=== PATIENT | female | born 1970 | race Caucasian/White ===

== ENCOUNTER → 2017-03-28 | Outpatient (CLI) | payer OTHER ==
--- NOTE | 2017-03-29 11:36 | MM ---
Reason for exam: screening (asymptomatic). Last mammogram was performed 1 year and 6 months ago. History: Family history of breast cancer in maternal grandmother at age 83. Benign core biopsy of the right breast. Took hormonal contraceptives for 6 years beginning at age 21. Physical Findings: A clinical breast exam by your physician is recommended on an annual basis and results should be correlated with mammographic findings. MG Screening Mammo w CAD Bilateral CC and MLO view(s) were taken. Prior study comparison: October 07, 2015, bilateral MG screening mammo w CAD. May 30, 2007, bilateral diagnostic digital mammog. The breast tissue is heterogeneously dense. This may lower the sensitivity of mammography. Finding: There are typically benign diffuse/scattered calcifications in both breasts. ASSESSMENT: Benign, BI-RAD 2 RECOMMENDATION: Routine screening mammogram of both breasts in 1 year.
== END | disposition home or self-care (01) ==
LOC: RADMAMWWP 10:04
PROVIDERS: ATTEND Family Medicine
DX: Z12.31 Encounter for screening mammogram for malignant neoplasm of breast (principal)
CPT/HCPCS: 77067

== ENCOUNTER → 2019-07-03 | Outpatient (CLI) | payer OTHER ==
--- NOTE | 2019-07-03 12:35 | XR ---
EXAMINATION TYPE: XR knee complete bilateral DATE OF EXAM: 07/03/2019 CLINICAL HISTORY: Chronic bilateral knee pain with no known injury. TECHNIQUE: Three views of the bilateral knees were obtained. COMPARISON: None. FINDINGS: There is no acute fracture/dislocation evident in either knee. Mild medial compartment wes int space narrowing is seen on the left with small marginal osteophytes of the medial compartment and lateral compartment. On the right there are moderate tricompartmental osteophytes and more pronounce d medial compartment joint space narrowing. The tri-compartment joint spaces appear aligned bilateral ly. Small right suprapatellar joint effusion. IMPRESSION: 1. Moderate right tricompartmental arthropathy and mild left bicompartmental arthropathy. 2. Small right suprapatellar joint effusion. 3. No acute fracture or dislocation in either knee.
== END | disposition home or self-care (01) ==
LOC: RADXRMAIN 11:01
PROVIDERS: ATTEND Nurse Practitioner Family
DX: M12.862 Other specific arthropathies, not elsewhere classified, left knee (principal); M12.861 Other specific arthropathies, not elsewhere classified, right knee; M25.461 Effusion, right knee

== ENCOUNTER → 2019-09-19 | Outpatient (CLI) | payer MEDICAID ==
[2019-09-19 11:43] LABS: Potassium 4.1 mmol/L (3.5-5.1)
[2019-09-19 11:53] LABS: Prothrombin Time 10.2 sec (9.0-12.0)
[2019-09-19 12:00] LABS: Basophils % (A) 0 %; Eosinophils % (A) 0 %; HCT 40.8 % (34.0-46.0); Lymphocytes # (A) 1.5 k/uL (1.0-4.8); Lymphocytes % (A) 22 %; MCH 27.3 pg (25.0-35.0); MCHC 31.7 g/dL (31.0-37.0); Mean Platelet Volume 11.3; Monocytes # (A) 0.4 k/uL (0-1.0); Monocytes % (A) 6 %; Neutrophils % (A) 70 %; Platelet Count 162 k/uL (150-450); RBC 4.75 m/uL (3.80-5.40); RDW 13.7 % (11.5-15.5); WBC 7.1 k/uL (3.8-10.6)
[2019-09-19 13:16] LABS: Anisocytosis (M) Present; Large Platelets Present
== END | disposition home or self-care (01) ==
LOC: LABPAT 10:39
PROVIDERS: ATTEND Family Medicine
DX: Z01.818 Encounter for other preprocedural examination (principal); M17.11 Unilateral primary osteoarthritis, right knee; Z01.812 Encounter for preprocedural laboratory examination
CPT/HCPCS: 36415; 80051; 85025; 85610; 87070; 93005

== ENCOUNTER 2019-10-01 05:53 | Observation (INO) | payer MEDICAID, OTHER ==
[2019-09-24 15:32] VITALS: BMI 36.9
--- NOTE | 2019-09-29 21:59 | HP ---
HISTORY AND PHYSICAL DATE OF SURGERY: 10/01/2019 Bravo Dooley is a 49-year-old patient seen with symptomatic right knee osteoarthritis. We discussed options for treatment. She elected to proceed with right total knee arthroplasty. Consent regarding the procedure was obtained. Dr. Cummings was her primary care physician. PAST MEDICAL HISTORY: Osteoarthritis. PAST SURGICAL HISTORY: Noncontributory. DAILY MEDICATIONS: Ibuprofen. ALLERGIES: CODEINE. SOCIAL HISTORY: She denies tobacco use. PHYSICAL: Evaluation of the right knee: Range of motion 0-115. There is a mild effusion present. Tenderness along medial joint line. Positive medial Tana's. Crepitus medial patellofemoral compartments. Pain with patellofemoral compression. Ligaments are stable. Hip rotation is without pain. Distal neurovascular exam is intact. Radiographs of the right knee reveal severe osteoarthritic changes. IMPRESSION: Right knee osteoarthritis. PLAN: Right total knee arthroplasty. MMODL / IJN: [id number] /
[~2019-10-01 05:53] MED LIST: ACETAMINOPHEN TAB 500 MG TAB PO ONE; MELOXICAM 7.5 MG TAB PO ONE; TRANEXAMIC ACID 1,000 MG in SODIUM CHLORIDE 0.9% 100 ML IVPB ONE
[2019-10-01] MEDS ORDERED: ROPIVACAINE 246.25 MG, EPINEPHrine 0.5 MG, KETOROLAC 30 MG, cloNIDine HCL/PF 80 MCG, WA... MISCELLANE ONE ×5 (06:00)
[2019-10-01] MEDS ORDERED: fentaNYL (PF) 50 MCG/ML 2 ML AMP IV PRN (06:03)
[2019-10-01] MEDS ORDERED: ONDANSETRON 4 MG/2 ML VIAL IVP ONE ×2 (06:03→09:55)
[2019-10-01] MEDS ORDERED: LIDOCAINE 1% (10MG/ML) FOR IV START INTRADERMA PRN (06:03)
[2019-10-01] MEDS: LACTATED RINGERS 1,000 ML IV SCH (06:34)
[2019-10-01] MEDS ORDERED: ACETAMINOPHEN TAB 500 MG TAB ONE (06:36)
[2019-10-01] MEDS ORDERED: DEXAMETHASONE SOD PHOSPHATE 10 MG/ML 1 ML VIAL IV ONE (06:42)
[2019-10-01] MEDS ORDERED: SCOPOLAMINE 1.5MG/72HR PATCH TRANSDERM ONE (06:42)
[2019-10-01] MEDS ORDERED: LIDOCAINE 2% (PF) 20 MG/ML 5 ML VIAL ONE (07:06)
[2019-10-01] MEDS ORDERED: MIDAZOLAM 2 MG/2 ML VIAL IVP ONE (07:10)
[2019-10-01] MEDS ORDERED: fentaNYL (PF) 50 MCG/ML 2 ML AMP IVP ONE ×3 (07:11→13:11)
[2019-10-01] MEDS ORDERED: INSULIN NPH 300 UNIT/3 ML VIAL SQ ONE (07:23)
[2019-10-01] MEDS ORDERED: LIDOCAINE 1% INJ 10MG/ML (20 ML MDV) ONE (07:23)
[2019-10-01] MEDS ORDERED: SUCCINYLCHOLINE CHLORIDE 100 MG/5 ML SYR IV ONE (07:23)
[2019-10-01] MEDS ORDERED: PROPOFOL 10 MG/ML 20 ML VIAL IV ONE (07:23)
[2019-10-01] MEDS ORDERED: HYDROmorphone (PF) 1 MG/ML ONE (07:23)
[2019-10-01] MEDS ORDERED: fentaNYL (PF) 50 MCG/ML 2 ML AMP ONE (07:23)
[2019-10-01] MEDS ORDERED: SODIUM CHLORIDE 0.9% 100 ML BAG ONE (07:23)
[2019-10-01] MEDS ORDERED: ceFAZolin 3,000 MG in SODIUM CHLORIDE 0.9% IRRIGATIO 3,000 ML IRRIGATION ONE (07:59)
[2019-10-01] MEDS ORDERED: LACTATED RINGERS 1,000 ML IV ONE ×3 (08:30→10:46)
[2019-10-01] MEDS ORDERED: ROPIVACAINE 0.2%-NS ON-Q PUMP 1,090 MG, EMPTY PAIN BALL 1 EACH MISCELLANE PRN ×2 (08:44→10:37)
[2019-10-01] MEDS ORDERED: NALOXONE 0.4 MG/ML 1 ML VIAL IV PRN (09:15)
[2019-10-01] MEDS ORDERED: HYDROmorphone 0.5 MG/0.5 ML SYRINGE IVP PRN (09:15)
[2019-10-01] MEDS ORDERED: HYDROmorphone 1 MG/ML 1 ML SYRINGE IVP PRN (09:15)
[2019-10-01] MEDS ORDERED: HYDROcodone/APAP 5-325MG 1 EACH TAB PO PRN ×2 (09:15)
[2019-10-01] MEDS ORDERED: ONDANSETRON 4 MG/2 ML VIAL IVP PRN (09:15)
--- NOTE | 2019-10-01 09:15 | P.OP ---
Date of Procedure: 10/01/19 Preoperative Diagnosis: Right knee osteoarthritis Postoperative Diagnosis: Right knee osteoarthritis Procedure(s) Performed: Right total knee arthroplasty Implants: 1. Depuy attune size 6 narrow cruciate retaining cemented femur 2. Depuy attune size 6 fixed bearing cemented tibial baseplate 3. Depuy attune size 6 fixed bearing cruciate retaining 10 mm polyethylene tibial insert 4. Depuy attune 38 mm all polyethylene cemented patella Anesthesia: GETA, regional (Adductor canal catheter), local Surgeon: Ricky Lomeli Production Superintendent #1: Catracho Kennedy Estimated Blood Loss (ml): 50 Pathology: other (Bone) Condition: stable Disposition: PACU Indications for Procedure: 49-year-old patient seen with symptomatic right knee osteoarthritis. After treatment options were discussed with her, she elected to proceed with total knee arthroplasty. Operative Findings: See description of procedure Description of Procedure: Patient was taken to the operative suite after having an adductor canal catheter placed by the department of anesthesia. Patient underwent a general anesthetic by the department of anesthesia. Patient was given preoperative IV intake antibiotics and TXA. A well-padded tourniquet was placed about the right lower extremity. The lower extremity was then prepped and draped in the normal sterile orthopedic fashion. The extremity was elevated, a tourniquet was insufflated to 300. A standard anterior incision was made sharply through skin. Dissection was taken down through the subcutaneous soft tissues down to the extensor mechanism. A medial arthrotomy was performed, patella was everted and knee was flexed. There was advanced osteoarthritis noted. I introduced my distal intramedullary femoral drill. I then introduced the distal femoral cutting jig. Chano TOLEDO secured the cutting jig with 2 pins. I held retractors in position while Chano TOLEDO performed the distal femoral resection through the guide area we now removed her distal femoral cutting guide. We now placed our 4-in-1 femoral cutting block and positioned and it was secured with 2 pins by Chano TOLEDO while I held the block in position. The distal femoral finishing was now completed. A proximal tibial cutting guide was positioned. I held the guide in the appropriate position with both hands well Chano TOLEDO inserted stabilizing pins into the guide. Proximal tibial cut was made. We now placed a trial femoral component into position, along with an appropriate size tibial tray and insert. We now took the knee through range of motion and had full extension good flexion and good overall soft tissue balance noted. The patella was everted and stabilized with 2 towel clips held by Chano TOLEDO while I performed a flush with patellar quad tendon utilizing a fresh sawblade. We templated the patella, appropriate drill holes were made. An appropriate trial patella was positioned, knee was taken through full range of motion with the patella tracking very nicely. The trial patella was removed. Drill holes were made through the femoral component. All trial components were removed after marking off the appropriate rotation of the tibia. Retractors were now positioned along the proximal tibia. An appropriate keel punch was made with the appropriate size tibial guide by myself on Chano TOLEDO assisted by holding retractors. At this point appropriate size implants were chosen and opened. The joint was irrigated copiously with pulse lavage mechanical irrigation. The posterior capsule was infiltrated with local analgesic. The wo und was irrigated with pulse lavage mechanical irrigation. We mixed antibiotic methylmethacrylate. We placed the knee into flexion. We placed multiple retractors assisted by Chano TOLEDO to expose the proximal tibia. Once the methyl methacrylate was ready, the tibial component was cemented into place removing any excess methylmethacrylate form by both myself and Chano TOLEDO. The femoral component was cemented into place removing the removing any excess methylmethacrylate performed by both myself and Chano TOLEDO. We then inserted the appropriate size polyethylene tibial insert. We made sure that it was locked into position. We took the knee into full extension, and then back in a flexion making sure we had removed any excess methylmethacrylate. The patellar component was then cemented down and secured with clamp. Excess methylmethacrylate removed. We kept the knee in full extension, patellar clamp in position until methylmethacrylate had hardened. Once it had hardened the patellar clamp was removed. The knee was taken through full range of motion. The patella tracked nicely. There was good soft tissue balancing. The tourniquet was now released. Additional hemostasis was achieved via electrocautery. A second gram of TXA was given. The wound again was irrigated with pulse lavage mechanical irrigation. The superficial soft tissues were infiltrated local analgesic. The extensor mechanism was repaired with Vicryl. We checked the repair with range of motion and it was stable. The subcutaneous soft tissues were repaired with Vicryl in layers. The skin was approximated with pernio/Dermabond. Sterile dressings were applied followed by loose web roll and Andrew bandage. The patient was transferred to a bed, and taken to recovery in stable and satisfactory condition. Chano TOLEDO assisted with this complex procedure.
[2019-10-01] MEDS ORDERED: diphenhydrAMINE 50 MG/ML 1 ML VIAL IVP ONE (10:01)
[2019-10-01] MEDS: HYDROmorphone 0.5 MG/0.5 ML SYRINGE IVP PRN ×3 (10:25→22:23)
--- NOTE | 2019-10-01 10:39 | P.ANPRN ---
Procedure Note - Anesthesia - Nerve Block Performed Right Adductor Canal Infusion Time Out Performed: Yes Date of Procedure: 10/01/19 Procedure Start Time: :08 Procedure Stop Time: 07:15 Location of Patient: PreOp Indication: Acute Post-Operative Pain, Dx/Pain Location, Requested by Surgeon Sedation Type: Sedate with meaningful contact maintained Preparation: Sterile Prep Position: Supine Catheter: Indwelling Needle Types: Pajunk Needle Gauge: 21 Ultrasound used to visualize needle placement: Yes Ultrasound used to observe medication spread: Yes Injectate: 0.5% Ropivacaine (see comment for volume) (20ml) Blood Aspirated: No Pain Paresthesia on Injection Noted: No Resistance on Injection: Normal Image Stored and Saved: Yes Events: Uneventful and Well Tolerated
--- NOTE | 2019-10-01 10:40 | P.ANPRN ---
Procedure Note - Anesthesia - Nerve Block Performed Right Other (see comment) Single Time Out Performed: Yes (Ipaks block with USG) Date of Procedure: 10/01/19 Procedure Start Time: 07:15 Procedure Stop Time: 07:17 Location of Patient: PreOp Indication: Acute Post-Operative Pain, Dx/Pain Location, Requested by Surgeon Sedation Type: Sedate with meaningful contact maintained Preparation: Sterile Prep Position: Left Lateral Catheter: None Needle Types: Pajunk Needle Gauge: 21 Ultrasound used to visualize needle placement: Yes Ultrasound used to observe medication spread: Yes Injectate: Other (see comment) (10ml 0.5% Ropivacaine + 10ml 2% Lidocaine with Epi 1:200,000) Blood Aspirated: No Pain Paresthesia on Injection Noted: No Resistance on Injection: Normal Image Stored and Saved: Yes Events: Uneventful and Well Tolerated
--- NOTE | 2019-10-01 11:12 | XR ---
EXAMINATION TYPE: XR knee limited RT DATE OF EXAM: 10/01/2019 COMPARISON: 07/03/2019 HISTORY: Post knee replacement TECHNIQUE: 2 view right knee FINDINGS: Tibial and femoral components of in place. No acute fractures are evident. Postsurgical aleah nges are within the soft tissues. IMPRESSION: 1. No acute fracture post knee replacement.
[2019-10-01] MEDS ORDERED: PROMETHAZINE INJ 25 MG/ML 1 ML VIAL IVPB ONE ×2 (15:00)
--- NOTE | 2019-10-01 22:38 | P.CONS ---
History of Present Illness - Reason for Consult Consult date: 10/01/19 Medical management Requesting physician: Ricky Lomeli - Chief Complaint Right knee surgery - History of Present Illness Consultation: This is a pleasant 49-year-old patient of Dr. Cummings. Patient underwent right total knee arthroplasty. Postprocedure pain is controlled. Patient's symptoms have been coming on for a while. She's tried conservative management including pain medications. Symptoms's been getting worse. Worse with activity better with rest. Pain is pretty much localized to the right knee. Today postprocedure no nausea or vomiting. No chest pain or shortness of breath. Has arthritis in other joints. Review of systems: GEN.: None EYES: None HEENT: None NECK: None RESPIRATORY: None CARDIOVASCULAR: None GASTROINTESTINAL: None GENITOURINARY: None MUSCULOSKELETAL: Joint pains LYMPHATICS: None HEMATOLOGICAL: None PSYCHIATRY: None NEUROLOGICAL: Occasionally trouble sleeping Past medical history to include: Osteoarthritis, insomnia Social history: Lives with 4 children, occasionally does marijuana, drinks 2-4 glasses of wine a week. Works at [employer]. Physical examination: VITAL SIGNS: 98.2, 68, 18, 151/92, 100% on room air GENERAL: [BMI 37.1, laying in bed, awake. EYES: Pupils equal. Conjunctiva normal. HEENT: External appearance of nose and ears normal, oral cavity grossly normal. NECK: JVD not raised; masses not palpable. HEART: First and second heart sounds are normal; no edema. LUNGS: Respiratory rate normal; clear to auscultation. ABDOMEN: Soft, nontender, liver spleen not palpable, no masses palpable. PSYCH: Alert and oriented x3; mood and affect normal. NEUROLOGICAL: Cranial nerves grossly intact; no facial asymmetry, power and sensation grossly intact. MUSCULAR skeletal: Evidence of OA LYMPHATICS: No lymph nodes palpable in the axilla and neck INVESTIGATIONS, reviewed in the clinical context: From September 18: White count 7.1 hemoglobin 13 platelets 162 potassium 4.1 EKG tracing personally reviewed by me-normal sinus rhythm Assessment: -Right total knee arthroplasty -Primary osteoarthritis of the knees -Obesity BMI 37.1, -Intermittent insomnia Plan: Patient getting IV fluids. Pain control in place. Lovenox for DVT prophylaxis. Care was discussed with the patient. Questions answered. Use melatonin for insomnia. Thank you Dr. Rich Past Medical History Past Medical History: Osteoarthritis (OA) Additional Past Medical History / Comment(s): Rt knee pain. History of Any Multi-Drug Resistant Organisms: None Reported Past Surgical History: Orthopedic Surgery Additional Past Surgical History / Comment(s): Rt knee scope Past Anesthesia/Blood Transfusion Reactions: Motion Sickness, Postoperative Nausea & Vomiting (PONV) Past Psychological History: Depression Additional Psychological History / Comment(s): Hx post- depression Smoking Status: Never smoker Past Alcohol Use History: Occasional Past Drug Use History: Marijuana Additional Drug Use History / Comment(s): occ use, monthly estimated - Past Family History Mother Additional Family Medical History / Comment(s): pre-cancerous colon polyp Medications and Allergies Home Medications Medication Instructions Recorded Confirmed Type Biocleanse 1 cap PO DAILY 09/24/19 History Ibuprofen [Motrin Ib] 800 mg PO Q8H PRN 09/24/19 10/01/19 History L.acidoph,Paracasei, B.lactis 1 each PO DAILY 09/24/19 10/01/19 History [Probiotic] Allergies Allergy/AdvReac Type Severity Reaction Status Date / Time codeine Allergy Nausea & Verified 09/24/19 15:02 Vomiting Physical Exam Vitals: Vital Signs Temp Pulse Pulse Resp BP BP Pulse Ox 10/01/19 18:42 98.7 F 67 102/66 93 L 10/01/19 16:00 18 10/01/19 15:57 98.2 F 68 18 151/92 100 10/01/19 14:39 61 20 139/76 95 10/01/19 13:57 72 20 122/75 100 10/01/19 13:30 57 L 20 124/77 99 10/01/19 13:15 61 18 122/72 99 10/01/19 13:00 59 L 18 120/70 99 10/01/19 12:44 65 17 125/76 95 10/01/19 12:13 61 17 120/77 95 10/01/19 11:40 73 20 144/83 93 L 10/01/19 11:25 70 20 140/89 93 L 10/01/19 11:09 66 18 144/83 94 L 10/01/19 10:45 64 16 150/77 94 L 10/01/19 10:01 86 16 144/72 96 10/01/19 09:46 83 16 142/67 94 L 10/01/19 09:31 89 16 143/76 98 10/01/19 06:23 98.5 F 81 16 136/87 98 Intake and Output 10/01/19 10/01/19 10/01/19 06:59 14:59 22:59 Intake Total 400 2301 Output Total 1350 Balance 400 951 Intake: IV 400 2301 Output: Urine 1300 Estimated Blood Loss 50 Other: # Voids 1 Weight 101 kg 101 kg
[2019-10-02 02:22] VITALS: TEMP 98.4
[2019-10-02] MEDS: HYDROmorphone 0.5 MG/0.5 ML SYRINGE IVP PRN (02:30)
[2019-10-02] MEDS: LACTATED RINGERS 1,000 ML IV SCH (05:46)
--- NOTE | 2019-10-02 06:11 | P.PN ---
Progress Note - Text Progress Note Date: 10/02/19 41-year-old female status post right total knee arthroplasty postop day #1. Patient had continuous adductor canal catheter. Patient doing well. Patient had complete analgesia all of yesterday. She was having severe nausea and lightheadedness which is common after anesthesia. VAS ranges from a 2-4 out of 10 in severity, catheter site looks clean dry and intact. She's been ambulating well, feeling much better today. Pain mostly is in the posterior popliteal fossa with no pain anterior immediately. Overall doing well likely discharged home today.
[2019-10-02 06:54] VITALS: BP 105/66; PULSE 62; RESP 17
[2019-10-02] MEDS ORDERED: ENOXAPARIN 40 MG/0.4 ML SYRINGE SQ SCH (09:00)
[2019-10-02] MEDS ORDERED: ONDANSETRON 4 MG/2 ML VIAL IVP PRN (09:35)
[2019-10-02] MEDS ORDERED: NALOXONE 0.4 MG/ML 1 ML VIAL IV PRN (09:35)
[2019-10-02] MEDS ORDERED: HYDROcodone/APAP 7.5-325MG 1 EACH TAB PO ONE (10:09)
--- NOTE | 2019-10-02 11:28 | P.PN ---
Subjective Progress Note Date: 10/02/19 Principal diagnosis: Status post right total knee arthroplasty patient is evaluated today at bedside, she is resting comfortably. She has had some increase in pain, she's nervous with taking oral pain medication due to previous adverse effects. She was scheduled for an outpatient surgery yesterday, she did have severe nausea after waking up. The nausea has much improved, she denies any chest pain or shortness of breath. Objective - Vital Signs Vital signs: Vital Signs Temp 98.4 F 10/02/19 06:53 Pulse 62 10/02/19 06:53 Resp 17 10/02/19 06:53 BP 105/66 10/02/19 06:53 Pulse Ox 95 10/02/19 06:53 Intake & Output 10/01/19 10/02/19 10/02/19 18:59 06:59 18:59 Intake Total 2301 260 Output Total 1350 Balance 951 260 Weight 101 kg Intake: IV 2301 Oral 260 Output: Urine 1300 Estimated Blood Loss 50 Other: # Voids 1 - Exam Right lower extremity: Incision is clean, dry, and intact. The foam dressing is in good condition. There is minimal soft tissue swelling and ecchymosis surrounding the medial and lateral aspects of the incision. Calf is soft, no tenderness with palpation. Plantar flexion, dorsiflexion, EHL, FHL are intact. Sensory exam to light touch throughout the extremity is intact, dorsal pedis pulses 2+. Assessment and Plan Assessment: Status post right total knee arthroplasty Plan: Pain control, will try [place] at bedside today. Plan for discharge on [place] and tramadol, we'll also send patient home on Zofran GI and DVT prophylaxis, aspirin 81 mg twice a day Wound care instructions were discussed/icing and elevating techniques discussed Home nursing and therapy after discharge Medical recommendations Plan for discharge home today Time with Patient: Less than 30
--- NOTE | 2019-10-02 11:32 | P.DS ---
Providers Date of admission: 10/02/19 03:37 Expected date of discharge: 10/02/19 Attending physician: Ricky Lomeli Primary care physician: Derek Cummings [facility] Course: Date of admission: 10/01/2019 Date of discharge: 10/02/2019 Admission diagnosis: Status post right total knee arthroplasty Discharge diagnosis: Same Attending physician: Dr. Lomeli Surgical procedures: Right total knee arthroplasty Brief history: Patient is a 49-year-old female with a history of progressive primary right knee osteoarthritis. At this point patient has failed conservative treatment measures and has opted to proceed with a elective right total knee arthroplasty. Hospital course: Details of patient's surgery can be found in operative report. Patient tolerated the procedure well and was subsequently transported to orthopedic floor. Patient's orthopeidc and medical care was provided daily. Patient had daily laboratory tests performed for evaluation of overall blood counts. Patient had daily physical therapy to include strengthening range of motion as well as education with walker ambulation. Patient was treated with Lovenox for their postoperative DVT prophylaxis during their inpatient stay. Patient was noted to have a relatively uneventful postoperative course. Patient reported satisfactory pain control with oral pain medications by postoperative day 0. Patient showed satisfactory progress with physical therapy. Patient moved steadily through the program and had no difficulty meeting the goals by postoperative day 1. Given patient's otherwise satisfactory course and having met physical therapy goals, plan is to discharge patient home on postoperative day 1. Discharge condition/disposition: Patient will be discharged home in stable condition. Discharge medications: Instructions are given on resumption of patient's normal daily medications per primary care recommendation, in addition patient will be prescribed Norm[place] 7.5 mg/325 mg, tramadol 50 mg, Colace 100 mg, Zofran 8 mg, aspirin 81 mg. Discharge instructions: 1. Wound care and infection precautions, keep incision dry and covered while showering, no lotions, creams, moisturizers. No soaking, tubs, pools, hottubs. Do not scrub over the incision. 2. Weight-bear as tolerated with walker / cane until follow-up. 3. Ice and elevate when necessary. Do not exceed 20 minutes per hour with ice pack. 4. Utilize compression sleeve until seen at first follow up appointment. 5. Visiting nursing care. 6. Home physical therapy including home CPM. 7. Pain meds and anticoagulants per prescription. 8. Pain medication has potential to cause constipation. Increase oral fluid and fiber intake. Contact primary care provider if you have not had a bowel movement within 48 hours after discharge 9. No anti-inflammatory medication until discussed at first post operative visit, this including Motrin, Aleve, Mobic, Diclofenac. 10. Follow up in office at 2 weeks postop with Chano Kennedy PA-C 11. Follow up with your primary care doctor 7-10 days after discharge. 12. Contact [facility] with any questions, . Procedures: Right total knee arthroplasty Patient Condition at Discharge: Good Plan - Discharge Summary Discharge Rx Participant: No New Discharge Prescriptions: New RX: Aspirin [Adult Low Dose Aspirin EC] 81 mg PO BID #60 tablet. Docusate [Colace] 100 mg PO DAILY #30 capsule HYDROcodone/APAP 7.5-325MG [Normandy 7.5] 1 each PO Q6HR PRN #21 tab PRN Reason: Pain RX: traMADol HCl [Ultram] 50 mg PO Q6H PRN #28 tab PRN Reason: Pain Ondansetron HCl [Zofran] 8 mg PO Q12H PRN #14 tab PRN Reason: Nausea And Vomiting Continue RX: L.acidoph,Paracasei, B.lactis [Probiotic] 1 each PO DAILY Biocleanse 1 cap PO DAILY No Action Ibuprofen [Motrin Ib] 800 mg PO Q8H PRN PRN Reason: Pain Discharge Medication List Biocleanse 1 cap PO DAILY 09/24/19 [History] Ibuprofen [Motrin Ib] 800 mg PO Q8H PRN 09/24/19 [History] RX: L.acidoph,Paracasei, B.lactis [Probiotic] 1 each PO DAILY 09/24/19 [History] Docusate [Colace] 100 mg PO DAILY #30 capsule 10/02/19 [Rx] HYDROcodone/APAP 7.5-325MG [Normandy 7.5] 1 each PO Q6HR PRN #21 tab 10/02/19 [Rx] Ondansetron HCl [Zofran] 8 mg PO Q12H PRN #14 tab 10/02/19 [Rx] RX: Aspirin [Adult Low Dose Aspirin EC] 81 mg PO BID #60 tablet. 10/02/19 [Rx] RX: traMADol HCl [Ultram] 50 mg PO Q6H PRN #28 tab 10/02/19 [Rx] Follow up Appointment(s)/Referral(s): [facility], [NON-STAFF] - Catracho Kennedy PAC [PHYSICIAN STEWARD/STEWARDESS THIRD] - 10/17/19 2:10 pm Patient Instructions/Handouts: *Surgery [facility] - On-Q Pain Pump Discharge Instructions, *Surgery [facility] - (Anesthesia) Discharge Instructions Outpatient Surgery, How to Use an Incentive Spirometer (DC), Knee Replacement (DC) Activity/Diet/Wound Care/Special Instructions: *Please call [facility] once home to arrange delivery of the Continuous Passive Motion (CPM) machine: [phone]. Follow up with Primary Care doctor in 7-10 days Orthopedic Discharge Instructions: 1. Wound care and infection precautions, keep incision dry and covered while showering, no lotions, creams, moisturizers. No soaking, pools, hot tubs. Do not scrub over incision. 2. Weight-bear as tolerated with walker / cane until follow-up. 3. Ice and elevate when necessary. Do not exceed 20 minutes per hour with ice pack. 4. Utilize compression sleeve until seen at first follow up appointment. 5. Pain meds and anticoagulants per prescription. 6. Pain medication has potential to cause constipation. Increase oral fluid and fiber intake. Contact primary care provider if you have not had a bowel movement within 48 hours after discharge. 7. No anti-inflammatory medication until discussed at first post operative visit, this including Motrin, Aleve, Mobic, Diclofenac. 8. Follow up in office at 2 weeks postop with Chano Kennedy PA-C 9. Follow up with your primary care doctor 7-10 days after discharge. 10. Contact [facility] with any questions, . Discharge Disposition: HOME WITH HOME HEALTH SERVICES
--- NOTE | 2019-10-02 19:32 | P.PN ---
Progress Note - Text Progress Note Date: 10/02/19 Consultation: This is a pleasant 49-year-old patient of Dr. Cummings. Patient underwent right total knee arthroplasty. Today-some pain at the operative knee. Feeling better. Has been out of bed. No chest pain or shortness breath. Did work with therapy. Review of systems: Was done for constitutional, cardiovascular, GI, pulmonary. relevant finding as above Current medications reviewed in today's electronic records. Physical examination: VITAL SIGNS: 98.4, 62, 17, 105/66, 95% room air GENERAL: Sitting up, comfortable EYES: Pupils equal. Conjunctiva normal. HEENT: External appearance of nose and ears normal, oral cavity grossly normal. NECK: JVD not raised; masses not palpable. HEART: First and second heart sounds are normal; no edema. LUNGS: Respiratory rate normal; clear to auscultation. ABDOMEN: Soft, nontender, liver spleen not palpable, no masses palpable. PSYCH: Alert and oriented x3; mood and affect normal. MUSCULAR skeletal: Evidence of OA INVESTIGATIONS, reviewed in the clinical context: From September 18: White count 7.1 hemoglobin 13 platelets 162 potassium 4.1 EKG tracing personally reviewed by me-normal sinus rhythm Assessment: -Right total knee arthroplasty -Primary osteoarthritis of the knees -Obesity BMI 37.1, -Intermittent insomnia Plan: Patient doing well. Continue current medication to plan. Follow-up with PCP upon discharge. Thank you Dr. Rich
== END 2019-10-02 13:12 | disposition home health service (06) ==
LOC: OR 05:53 → 4SSUR 09:25 → OR 10-02 04:04
PROVIDERS: ADMIT Orthopaedic Surgery; ATTEND Orthopaedic Surgery
DX: M17.0 Bilateral primary osteoarthritis of knee (principal); R11.0 Nausea; R42 Dizziness and giddiness; G47.00 Insomnia, unspecified; M19.90 Unspecified osteoarthritis, unspecified site; E66.9 Obesity, unspecified; Z68.37 Body mass index [BMI] 37.0-37.9, adult; F32.9 Major depressive disorder, single episode, unspecified; Z88.5 Allergy status to narcotic agent; F17.210 Nicotine dependence, cigarettes, uncomplicated; Z79.1 Long term (current) use of non-steroidal anti-inflammatories (NSAID); Z80.0 Family history of malignant neoplasm of digestive organs
CPT/HCPCS: 97116; 97110; 97161; 81025; 64448; 76942; 88300; 73560; 27447; G0378; C1776; C1713; J2250; J0171; J1200; J1100; J2550; J0690 ×2; J2405; J2001; J1650; J3010; J1885; J1170 ×3; J2795 ×2; J0330; J2704; J0735

== ENCOUNTER 2020-01-07 10:41 | Day surgery (SDC) | payer MEDICAID, OTHER ==
[2020-01-01 09:17] VITALS: BMI 34.6
--- NOTE | 2020-01-06 10:52 | HP ---
HISTORY AND PHYSICAL REASON FOR ADMISSION: Surgery scheduled for 01/07/2020 HISTORY OF PRESENT ILLNESS: Amada Dooley is a 49-year-old patient seen with right knee persistent adhesions/stiffness with history of previous total knee arthroplasty. We discussed manipulation under anesthesia, right knee with steroid injection. She was agreeable and consent was obtained. PAST MEDICAL HISTORY: Noncontributory. SURGICAL HISTORY: Right total knee arthroplasty. DAILY MEDICATIONS: Ibuprofen. ALLERGIES: CODEINE. SOCIAL HISTORY: She denies tobacco use. PHYSICAL EXAMINATION: Evaluation of the right knee: She has a previous well-healed anterior incision. Range of motion is -2 to 90. Ligaments are stable. Distal neurovascular exam is intact. RADIOGRAPHS: Radiographs of the right knee reveal a stable appearing total knee arthroplasty. IMPRESSION: 1. Right knee adhesions. 2. History of right total knee arthroplasty. PLAN: Manipulation under anesthesia, right knee with steroid injection. Surgery is scheduled for 01/07/2020. MMODL / IJN: [id number] /
[~2020-01-07 10:41] MED LIST changes: -ACETAMINOPHEN TAB 500 MG TAB PO ONE; +DEXAMETHASONE SOD PHOSPHATE 4 MG/ML 1 ML VIAL IV ONE; +HYDROmorphone 0.5 MG/0.5 ML SYRINGE IVP PRN; +LACTATED RINGERS 1,000 ML IV SCH; -MELOXICAM 7.5 MG TAB PO ONE; +ONDANSETRON 4 MG/2 ML VIAL IVP ONE; +Pre Op ABX Message 1 EACH MISC MISCELLANE ONE; -TRANEXAMIC ACID 1,000 MG in SODIUM CHLORIDE 0.9% 100 ML IVPB ONE
[2020-01-07 11:05] VITALS: TEMP 98.4
[2020-01-07] MEDS ORDERED: fentaNYL (PF) 50 MCG/ML 2 ML AMP IVP ONE (11:31)
[2020-01-07] MEDS ORDERED: MIDAZOLAM 2 MG/2 ML VIAL IVP ONE (11:31)
[2020-01-07] MEDS ORDERED: ROPIVACAINE 5 MG/ML 30 ML VIAL ONE (11:49)
[2020-01-07] MEDS ORDERED: fentaNYL (PF) 50 MCG/ML 2 ML AMP ONE (11:49)
[2020-01-07] MEDS ORDERED: PROPOFOL 10 MG/ML 20 ML VIAL IV ONE (11:49)
[2020-01-07] MEDS ORDERED: KETOROLAC 15 MG/ML 1 ML VIAL ONE (11:49)
[2020-01-07] MEDS ORDERED: MIDAZOLAM 2 MG/2 ML VIAL ONE (11:49)
[2020-01-07] MEDS ORDERED: methylPREDNISolone ACETATE 80 MG/ML 1 ML VIAL INJ ONE (11:55)
--- NOTE | 2020-01-07 12:06 | P.OP ---
Date of Procedure: 01/07/20 Preoperative Diagnosis: Right knee adhesions Postoperative Diagnosis: Right knee adhesions Procedure(s) Performed: Manipulation under anesthesia right knee with steroid injection Anesthesia: MAC, local Surgeon: Ricky Lomeli Estimated Blood Loss (ml): 0 Pathology: none sent Condition: stable Disposition: PACU Indications for Procedure: 49-year-old patient seen with persistent right knee adhesions. After discussion, she elected to proceed with manipulation under anesthesia right knee with steroid injection. Operative Findings: See description of procedure Description of Procedure: Patient was taken to the monitored anesthesia area. The patient received preoperative IV antibiotics. The patient underwent IV sedation by the department of anesthesia. Once sufficient anesthesia was noted a manipulation was performed of the right knee achieving full range of motion with audible tearing of the adhesions. The superior lateral aspect of the knee was prepped and draped in the normal sterile orthopedic fashion. A solution 1 mL Depo- Medrol and 2 mL quarter percent Marcaine were injected intra-articular sterile technique. A sterile Band-Aid was applied. The patient was then awakened having tolerated procedure well.
--- NOTE | 2020-01-07 12:20 | P.ANPRN ---
Procedure Note - Anesthesia - Nerve Block Performed Right Adductor Canal Single Time Out Performed: Yes (1130) Date of Procedure: 01/07/20 Procedure Start Time: : Procedure Stop Time: :36 Location of Patient: PreOp Indication: Acute Post-Operative Pain, Requested by Surgeon Specifically requested for management of pain by DrOren: Ricky Lomeli Sedation Type: Sedate with meaningful contact maintained Preparation: Sterile Prep Position: Supine Catheter: None Needle Types: Pajunk Needle Gauge: 21 Ultrasound used to visualize needle placement: Yes Ultrasound used to observe medication spread: Yes Injectate: 0.5% Ropivacaine (see comment for volume) (30cc) Blood Aspirated: No Pain Paresthesia on Injection Noted: No Resistance on Injection: Normal Image Stored and Saved: Yes Events: Uneventful and Well Tolerated
[2020-01-07 12:54] VITALS: BP 140/81; RESP 20
[2020-01-07 13:09] VITALS: PULSE 73
== END 2020-01-07 13:20 | disposition home or self-care (01) ==
LOC: OR 10:41
PROVIDERS: ATTEND Orthopaedic Surgery
DX: M24.661 Ankylosis, right knee (principal); M19.90 Unspecified osteoarthritis, unspecified site; Z79.1 Long term (current) use of non-steroidal anti-inflammatories (NSAID); Z88.5 Allergy status to narcotic agent; Z96.651 Presence of right artificial knee joint
CPT/HCPCS: 64447; 27570; 81025; 76942; J2250; J1040; J1100; J0690; J2405; J3010; J2795; J1885; J2704

== ENCOUNTER → 2020-10-21 | Outpatient (CLI) | payer OTHER ==
--- NOTE | 2020-10-22 14:51 | MM ---
Reason for exam: screening (asymptomatic). Last mammogram was performed 3 years and 7 months ago. History: Family history of breast cancer in maternal grandmother at age 83. Benign core biopsy of the right breast. Took hormonal contraceptives for 6 years beginning at age 21. Physical Findings: A clinical breast exam by your physician is recommended on an annual basis and results should be correlated with mammographic findings. MG Screening Mammo w CAD Bilateral CC and MLO view(s) were taken. Prior study comparison: March 28, 2017, bilateral MG screening mammo w CAD. October 07, 2015, bilateral MG screening mammo w CAD. The breast tissue is extremely dense which could obscure a lesion on mammography. Developing asymmetry right lower inner quadrant. This finding is changed when compared with previous exams. ASSESSMENT: Incomplete: need additional imaging evaluation, BI-RAD 0 RECOMMENDATION: Special view mammogram of the right breast. If lesion persists on supplemental views, image directed ultrasound is recommended. [facility] will attempt to contact patient to return for supplemental views and ultrasound if indicated.
== END | disposition home or self-care (01) ==
LOC: RADMAMWWP 16:14
PROVIDERS: ATTEND Family Medicine
DX: Z12.31 Encounter for screening mammogram for malignant neoplasm of breast (principal); Z80.3 Family history of malignant neoplasm of breast; Z79.3 Long term (current) use of hormonal contraceptives
CPT/HCPCS: 77067

== ENCOUNTER → 2020-10-29 | Outpatient (CLI) | payer OTHER ==
--- NOTE | 2020-10-30 12:12 | MM ---
Reason for exam: additional evaluation requested from abnormal screening. Last mammogram was performed less than 1 month ago. History: Family history of breast cancer in maternal grandmother at age 83. Benign core biopsy of the right breast. Took hormonal contraceptives for 6 years beginning at age 21. Physical Findings: Nurse Summary: 0.5cm nodule in the right breast at 9 o'clock (nurse ms). MG Work Up Mamm w CAD RT Spot compression CC, spot compression MLO, and LM view(s) were taken of the right breast. Prior study comparison: October 21, 2020, bilateral MG screening mammo w CAD. March 28, 2017, bilateral MG screening mammo w CAD. October 07, 2015, bilateral MG screening mammo w CAD. The breast tissue is heterogeneously dense. This may lower the sensitivity of mammography. 1.9cm asymmetric density inferior right MLO view persists on spot MLO and LM view. 9 o'clock palpable marker near the nipple. These results were verbally communicated with the patient and result sheet given to the patient on 10/29/20. ASSESSMENT: Incomplete: need additional imaging evaluation, BI-RAD 0 RECOMMENDATION: Ultrasound of the right breast. (3-10 o'clock)
--- NOTE | 2020-11-12 14:46 | USB ---
Reason for exam: additional evaluation requested from abnormal screening. History: Family history of breast cancer in maternal grandmother at age 83. Benign core biopsy of the right breast. Took hormonal contraceptives for 6 years beginning at age 21. US Breast Workup Limited RT Right limited breast ultrasound including focal area of concern, retroareolar and axilla demonstrates no cystic or solid lesion seen. 3-10 o'clock scanned. These results were verbally communicated with the patient and result sheet given to the patient on 10/29/20. ASSESSMENT: Suspicious, BI-RAD 4 RECOMMENDATION: Stereotactic core biopsy of the right breast. (try lateral medial approach) Called Dr. Cummings's office with mammographic findings will scheduled an appointment with Dr. Cordova. PRELIMINARY REPORT CALLED AND FAXED TO DR. CORDOVA ON 10/30/20.
== END | disposition home or self-care (01) ==
LOC: RADMAMWWP 13:46
PROVIDERS: ATTEND Family Medicine
DX: N63.15 Unspecified lump in the right breast, overlapping quadrants (principal); Z80.3 Family history of malignant neoplasm of breast
CPT/HCPCS: 77065

== ENCOUNTER 2020-11-19 07:14 | Day surgery (SDC) | payer OTHER ==
[2020-11-14 09:04] VITALS: BMI 38.6
[2020-11-19] MEDS ORDERED: LACTATED RINGERS 1,000 ML IV SCH (07:32)
[2020-11-19] MEDS ORDERED: LIDOCAINE 1% (10MG/ML) FOR IV START INTRADERMA PRN (07:32)
[2020-11-19 07:55] VITALS: TEMP 97
--- NOTE | 2020-11-19 07:58 | P.GSHP ---
History of Present Illness H&P Date: 11/19/20 CHIEF COMPLAINT: Colon screen HISTORY OF PRESENT ILLNESS: The patient is a 50-year-old female who presents for colon screen. Lower endoscopy was offered for further evaluation and management. PAST MEDICAL HISTORY: Please see list. PAST SURGICAL HISTORY: Please see list. MEDICATIONS: Please see list. ALLERGIES: Please see list. SOCIAL HISTORY: No illicit drug use FAMILY HISTORY: No reports of Crohn disease or ulcerative colitis. REVIEW OF ORGAN SYSTEMS: CONSTITUTIONAL: No reports of fevers or chills. PHYSICAL EXAM: VITAL SIGNS: Stable GENERAL: Well-developed pleasant in no acute distress. HEENT: No scleral icterus. Extraocular movements grossly intact. Moist buccal mucosa. NECK: Supple without lymphadenopathy. CHEST: Unlabored respirations. Equal bilateral excursions. CARDIOVASCULAR: Regular rate and rhythm. Distal 2+ pulses. ABDOMEN: Soft, nontender, nondistended. MUSCULOSKELETAL: No clubbing, cyanosis, or edema. ASSESSMENT: 1. Colon screen. PLAN: 1. Recommend proceeding with a lower endoscopy Past Medical History Past Medical History: Osteoarthritis (OA) Additional Past Medical History / Comment(s): Rt knee pain. History of Any Multi-Drug Resistant Organisms: None Reported Past Surgical History: Joint Replacement, Orthopedic Surgery Additional Past Surgical History / Comment(s): Rt knee scope. rt knee replacement Past Anesthesia/Blood Transfusion Reactions: Motion Sickness, Postoperative Nausea & Vomiting (PONV) Smoking Status: Never smoker - Past Family History Mother Additional Family Medical History / Comment(s): pre-cancerous colon polyp Medications and Allergies Home Medications Medication Instructions Recorded Confirmed Type Ascorbic Acid [Vitamin C] 500 mg PO DAILY 11/14/20 11/14/20 History Ascorbic Acid/Collagen Hydr 1 each PO DAILY 11/14/20 11/14/20 History [Collagen Plus Vit C Capsule] Multivitamins, Thera [Multivitamin 1 tab PO DAILY 11/14/20 11/14/20 History (formulary)] Allergies Allergy/AdvReac Type Severity Reaction Status Date / Time codeine Allergy Nausea & Verified 11/14/20 08:59 Vomiting Surgical - Exam Vital Signs Temp Pulse Resp BP Pulse Ox 97 F L 80 20 122/88 99 11/19/20 07:52 11/19/20 07:52 11/19/20 07:52 11/19/20 07:52 11/19/20 07:52
[2020-11-19] MEDS ORDERED: PROPOFOL 10 MG/ML 20 ML VIAL IV ONE (08:28)
--- NOTE | 2020-11-19 09:03 | P.PCN ---
Date of Procedure: 11/19/20 Description of Procedure: PREOPERATIVE DIAGNOSIS: Colonoscopy screening. Family history colon polyps POSTOPERATIVE DIAGNOSIS: Colonoscopy screening. Family history colon polyps OPERATION: Colonoscopy to the cecum, ileocecal valve and appendiceal orifice. SURGEON: Michelle Cobb MD. ANESTHESIA: MAC. INDICATIONS: The patient is a 50-year-old female who presents for her first colonoscopy screening. Benefits and risks were described and informed consent was obtained. DESCRIPTION OF PROCEDURE: The patient had undergone Sutab prep. The patient had been brought into the operating room and laid in the left lateral decubitus position. After adequate intravenous sedation, the rectum was examined with 2% lidocaine jelly. External hemorrhoids were encountered. The rectal tone was within normal limits. No lesions were palpated in the rectal vault. An Olympus colonoscope was advanced until the cecum, ileocecal valve and appendiceal orifice were clearly viewed. The prep was excellent. No scattered diverticulosis was encountered. No colonic polyps were found. No evidence of focal colitis was found. Retroflexion of the scope demonstrated grade 2 internal hemorrhoids without active bleeding or inflammation. The colon was desufflated. The patient had tolerated the procedure well. Withdrawal time was over 6 minutes. FINDINGS: Aronchick preparation quality scale 1 (1-5) Internal hemorrhoids, grade 2 External prolapsed hemorrhoids, grade 2 No arteriovenous malformations. No adenomatous polyps. No focal colitis. RECOMMENDATIONS: Lower endoscopy in 2025 due to high risk history Plan - Discharge Summary Discharge Rx Participant: No New Discharge Prescriptions: Continue Ascorbic Acid [Vitamin C] 500 mg PO DAILY Multivitamins, Thera [Multivitamin (formulary)] 1 tab PO DAILY Ascorbic Acid/Collagen Hydr [Collagen Plus Vit C Capsule] 1 each PO DAILY Discharge Medication List Ascorbic Acid [Vitamin C] 500 mg PO DAILY 11/14/20 [History] Ascorbic Acid/Collagen Hydr [Collagen Plus Vit C Capsule] 1 each PO DAILY 11/14/20 [History] Multivitamins, Thera [Multivitamin (formulary)] 1 tab PO DAILY 11/14/20 [History] Follow up Appointment(s)/Referral(s): Michelle Cobb MD [STAFF PHYSICIAN] - As Needed Patient Instructions/Handouts: *Surgery [facility] - (Anesthesia) Endoscopy Discharge Instructions Activity/Diet/Wound Care/Special Instructions: Repeat colonoscopy 2025 Discharge Disposition: HOME SELF-CARE
[2020-11-19 09:11] VITALS: BP 142/85; PULSE 76; RESP 16
== END 2020-11-19 10:00 | disposition home or self-care (01) ==
LOC: ORWHC2ENDO 07:14
PROVIDERS: ATTEND Surgery Plastic and Reconstructive Surgery
DX: Z12.11 Encounter for screening for malignant neoplasm of colon (principal); K64.1 Second degree hemorrhoids; M17.11 Unilateral primary osteoarthritis, right knee; Z96.651 Presence of right artificial knee joint; Z83.71 Family history of colonic polyps; K21.9 Gastro-esophageal reflux disease without esophagitis; Z88.5 Allergy status to narcotic agent
CPT/HCPCS: 81025; J2704; G0105; 45378

== ENCOUNTER → 2020-11-21 | Outpatient (CLI) | payer OTHER ==
[2020-11-21 14:12] VITALS: BP 133/86; PULSE 93; RESP 12; TEMP 98.5
--- NOTE | 2020-11-21 14:35 | P.GSHP ---
History of Present Illness H&P Date: 11/21/20 Chief Complaint: abnormal right breast mammogram Amada is a 50 year old white female seen in consultation for Dr. Cummings regarding a mammographic abnormality in the right breast. She had a routine mammogram and [id number]. This was followed [place] [id number]. No lesion of concern was noted on the ultrasound. The lesion persisted on the mammogram. 1.9 cm asymmetric density in the inferior right breast. A 3-D mammogram was performed on [id number] and reviewed with Dr. rodriguez. It was his opinion that the area of concern splayed out and was consistent with soft tissue and that the patient could have a repeat mammogram in 6 months rather than an attempt at stereo biopsy. The patient does not feel any lumps masses or nodules of concern in either breast. She is not complaining of any nipple discharge or skin changes. She has not had any trauma or infection in the breast. In the remote past she had an aspiration of the right breast which was nonmalignant. Caffeine: 2 cups/day nicotine: none chocolate: daily BCP: used them for about 5 years stopped at 28 Family history: Maternal grandmother: Breast cancer Hormonal history: Menarche: 14 M2, breast fed: yes, age at first : 28 Periods irregular, patient is on provera an ultrasound for December 11 to check the lining of uterus; this was just for 7 days, she is not on any hormones at this time Surgical history: knee surgery right Medical History: none Social history: Nicotine: Negative Alcohol: occasional drugs: Marijuana once/month - Constitutional Constitutional: Denies chills, Denies fever - EENT Comment: headaches once a month Eyes: denies blurred vision, denies pain Ears: deny: decreased hearing, tinnitus Ears, nose, mouth and throat: Reports headache, Denies sore throat - Breasts Breasts: bilateral: as per HPI - Cardiovascular Cardiovascular: Denies chest pain, Denies shortness of breath - Respiratory Respiratory: Reports cough - Gastrointestinal Gastrointestinal: Denies abdominal pain, Denies diarrhea, Denies nausea, Denies vomiting - Genitourinary (Female) Genitourinary: Denies dysuria, Denies hematuria - Menstruation Menstruation: Reports menses variable - Musculoskeletal Musculoskeletal: Denies myalgias - Integumentary Integumentary: Denies pruritus, Denies rash - Neurological Neurological: Denies numbness, Denies weakness - Psychiatric Psychiatric: Reports anxiety, Denies depression - Endocrine Endocrine: Denies fatigue, Denies weight change - Hematologic/Lymphatic Comment: none - Allergic/Immunologic Allergic/Immunologic: Reports as per HPI Past Medical History Past Medical History: Osteoarthritis (OA) Additional Past Medical History / Comment(s): Rt knee pain. History of Any Multi-Drug Resistant Organisms: None Reported Past Surgical History: Orthopedic Surgery Additional Past Surgical History / Comment(s): Rt knee scope, total right knee 2020 Past Anesthesia/Blood Transfusion Reactions: Motion Sickness, Postoperative Nausea & Vomiting (PONV) Past Psychological History: Depression Additional Psychological History / Comment(s): Hx post- depression Smoking Status: Never smoker Past Alcohol Use History: Occasional Past Drug Use History: Marijuana Additional Drug Use History / Comment(s): occ use, monthly estimated - Past Family History Mother Additional Family Medical History / Comment(s): pre-cancerous colon polyp Medications and Allergies Home Medications Medication Instructions Recorded Confirmed Type Ascorbic Acid [Vitamin C] 500 mg PO DAILY 11/14/20 11/21/20 History Ascorbic Acid/Collagen Hydr 1 each PO DAILY 11/14/20 11/21/20 History [Collagen Plus Vit C Capsule] Multivitamins, Thera [Multivitamin 1 tab PO DAILY 11/14/20 11/21/20 History (formulary)] Allergies Allergy/AdvReac Type Severity Reaction Status Date / Time codeine Allergy Nausea & Verified 11/21/20 13:58 Vomiting Surgical - Exam BMI 38.3 - General no distress - Eyes normal ocular movement - ENT normal nares - Neck trachea midline - Respiratory normal respiratory effort, clear to auscultation - Cardiovascular Rhythm: regular Heart Sounds: normal: S1, S2 - Abdomen Abdomen: soft - Integumentary normal turgor - Neurologic no disoriented, no combative - Musculoskeletal normal gait - Psychiatric oriented to time, oriented to person, oriented to place, speech is normal, memory intact Breast Exam: BRA: [id number] Inspection: bilateral grade 2/3 ptosis Palpation: right breast: multipositional exam no dominate masses or nodules of concern right axilla: no adenopathy of concern left breast: multipositional exam no dominate masses or nodules of concern left axilla: no adenopathy of concern Results mammogram reviewed with Dr. Reyez/ lesion of concern in the right breast was not seen on ultrasound. A 3-D mammogram of the right breast was performed on [id number] and it is felt that the area of concern is soft tissue and splays out. Therefore Dr. Reyez feels that a six-month mammogram is reasonable rather than an attempted stereo biopsy at this time. Assessment and Plan Assessment: Impression: 1. Right breast mammographic abnormality appears to splay out on a 3-D mammogram 2. Fibrocystic breast changes Plan: 1. Repeat right breast mammogram in 6 months with physician exam at that time I discussed with the patient the findings on the 3-D mammogram. I have given her the option of an attempt at stereo biopsy however were uncertain that we could localize the area at this time. She understands and wishes to wait on any attempt at biopsy. We will repeat the mammogram in 6 months with physician exam at that time. Cc: Dr. Cummings
--- NOTE | 2020-11-21 15:14 | MM ---
Reason for exam: clinical finding. Last mammogram was performed 1 month ago. History: Family history of breast cancer in maternal grandmother at age 83. Benign core biopsy of the right breast. Took hormonal contraceptives for 6 years beginning at age 21. Physical Findings: Breast exam performed by Dr. Cordova. MG 3D Diag Mammo W/Cad RT Spot compression CC, spot compression MLO, and ML view(s) were taken of the right breast. Prior study comparison: October 29, 2020, right breast MG work up mamm w CAD RT. October 21, 2020, bilateral MG screening mammo w CAD. The breast tissue is heterogeneously dense. This may lower the sensitivity of mammography. No distinct new lesion persists on additional views. These results were verbally communicated with the patient and result sheet given to the patient on 11/21/20. ASSESSMENT: Probably benign, BI-RAD 3 RECOMMENDATION: Follow-up diagnostic mammogram of the right breast in 6 months.
== END ==
LOC: WWCWWP 13:58
PROVIDERS: ATTEND Surgery
DX: N60.19 Diffuse cystic mastopathy of unspecified breast (principal); R92.8 Other abnormal and inconclusive findings on diagnostic imaging of breast; M19.90 Unspecified osteoarthritis, unspecified site; F32.9 Major depressive disorder, single episode, unspecified; Z88.5 Allergy status to narcotic agent
CPT/HCPCS: 77065; G0279; 77061

== ENCOUNTER → 2020-12-11 | Outpatient (CLI) | payer OTHER ==
--- NOTE | 2020-12-11 16:01 | US ---
EXAMINATION TYPE: US pelvis complete transvag DATE OF EXAM: 12/11/2020 COMPARISON: NONE CLINICAL HISTORY: 50-year-old female N93.9 Abnormal uterine and vaginal bleeding, unspecified. TECHNIQUE: Transabdominal sonographic images of the pelvis were acquired. Transvaginal sonographic i mages were medically necessary to better assess the following anatomy: Endometrium Date of LMP: Irregular. Patient had menses for 1 month FINDINGS: EXAM MEASUREMENTS: Uterus: 11.6x5.4x4.5 cm Endometrial Stripe: 1.3 cm Right Ovary: Possible 1.8cm Left Ovary: 3.9x2.9x2.1 cm 1. Uterus: Anteverted and otherwise wnl. There is a multicystic area at the cervix measuring 2.5 cm . Individual cystic locules measuring up to 6 mm. 2. Endometrium: 1.3 cm. 3. Right Ovary: Obscured by overlying bowel gas 4. Left Ovary: Cyst = 3.7x2.4x2.6cm 5. Bilateral Adnexa: Obscured by overlying bowel gas 6. Posterior cul-de-sac: wnl IMPRESSION: 1. Endometrial stripe is thickened at 1.3 cm. This should correspond to the secretory phase of the me nstrual cycle. 2. Right ovary is only questionably seen. There is a 3.7 cm cyst/dominant follicle of the left ovary. 3. Multicystic area at the cervix measuring 2.5 cm. This may represent numerous small cervical naboth laura cysts. Correlate with direct inspection and Pap smear to exclude the possibility of cervical canc er/adenoma malignum.
== END | disposition home or self-care (01) ==
LOC: RADUSWWP 14:48
PROVIDERS: ATTEND Family Medicine
DX: R93.89 Abnormal findings on diagnostic imaging of other specified body structures (principal)
CPT/HCPCS: 76830; 76856

== ENCOUNTER → 2021-03-03 | Outpatient (CLI) | payer OTHER ==
[2021-03-03 17:57] LABS: Basophils # (A) 0.03 X 10*3/uL (0.00-0.10); Basophils % (A) 0.5 %; Eosinophils # (A) 0.01 X 10*3/uL (0.04-0.35); Eosinophils % (A) 0.2 %; HCT 41.4 % (37.2-46.3); HGB 13.2 g/dL (12.0-15.0); Lymphocytes # (A) 2.41 X 10*3/uL (0.90-5.00); Lymphocytes % (A) 36.6 %; MCH 28.3 pg (27.0-32.0); MCHC 31.9 g/dL (32.0-37.0); MCV 88.8 fL (80.0-97.0); Mean Platelet Volume 12.3 fL (9.5-12.2); Monocytes # (A) 0.72 X 10*3/uL (0.20-1.00); Monocytes % (A) 10.9 %; Neutrophils # (A) 3.41 X 10*3/uL (1.80-7.70); Neutrophils % (A) 51.6 %; Platelet Count 155 X 10*3/uL (140-440); RBC 4.66 X 10*6/uL (4.10-5.20); RDW 13.4 % (11.5-14.5); WBC 6.59 X 10*3/uL (4.50-10.00)
== END | disposition home or self-care (01) ==
LOC: LABPAT 14:43
PROVIDERS: ATTEND Obstetrics & Gynecology
DX: Z01.812 Encounter for preprocedural laboratory examination (principal); N92.0 Excessive and frequent menstruation with regular cycle; N94.6 Dysmenorrhea, unspecified
CPT/HCPCS: 36415; 85025

== ENCOUNTER 2021-03-10 06:29 | Day surgery (SDC) | payer MEDICAID, OTHER ==
[2021-03-05 15:00] VITALS: BMI 39.9
[~2021-03-10 06:29] MED LIST changes: -HYDROmorphone 0.5 MG/0.5 ML SYRINGE IVP PRN; +LIDOCAINE 1% (10MG/ML) FOR IV START INTRADERMA PRN; +SCOPOLAMINE 1.5MG/72HR PATCH TRANSDERM ONE
[2021-03-10] MEDS ORDERED: MIDAZOLAM 2 MG/2 ML VIAL ONE (07:26)
[2021-03-10] MEDS ORDERED: PROPOFOL 10 MG/ML 20 ML VIAL IV ONE (07:26)
[2021-03-10] MEDS ORDERED: LIDOCAINE 1% INJ 10MG/ML (20 ML MDV) ONE (07:26)
[2021-03-10] MEDS ORDERED: KETOROLAC 15 MG/ML 1 ML VIAL ONE (07:26)
[2021-03-10] MEDS ORDERED: fentaNYL (PF) 50 MCG/ML 2 ML AMP ONE (07:26)
--- NOTE | 2021-03-10 08:05 | P.OP ---
Date of Procedure: 03/10/21 Preoperative Diagnosis: Neurology, dysmenorrhea Postoperative Diagnosis: Grade 2-3 cystocele, grade 2-3 rectocele, mild uterine prolapse. Procedure(s) Performed: Hysteroscopy, NovaSure ablation Anesthesia: VIRGINIAA Surgeon: Michelle Curry Estimated Blood Loss (ml): 10 IV fluids (ml): 400 Urine output (ml): 100 Pathology: none sent Condition: stable Disposition: PACU Operative Findings: Grade 2-3 cystocele and rectocele, grade 2-3 uterine prolapse, multiparous cervix, negative endometrial cavity. Description of Procedure: Patient is brought to the operating room where a general anesthetic is administered without difficulty. She's placed in the dorsal lithotomy position. Urine hCG is negative. The appropriate timeout is performed to assure proper patient and procedural identification. The cervix, vagina, and perineal bodies are all prepped and draped in the usual sterile fashion. Bladder is drained for 100 mL of clear yellow urine with a red Garcia catheter. Weighted speculum was placed into the vagina. The anterior lip of the cervix is grasped with a double-tooth tenaculum. Cervix is multiparous, uterus sounds to a depth of 9 cm. The cervix is gently and systematically dilated using Hanks dilators. The hysteroscope was placed, fluid is infused. The cavity is inspected, and contains a fair amount of proliferative-type appearing tissue. No obvious polyps, fibroids, septa or defe cts. Hysteroscope was removed. The NovaSure wand is then placed and seated properly. Uterine length of 6 cm, width of 4.2 cm is calibrated. The machine is properly enabled. For 56 seconds and a power of 139 W the procedure is carried out. When the machine shuts off, the wand is reduced and removed. Hysteroscope was once again placed. Cavity appears to be uniformly blanched. Cervical lip is dry. All sponge needle and enhancement counts are correct. Patient is brought back to the recovery room in very good condition with stable vital signs including blood pressure 102/56, pulse 60, 95% O2 saturation. Toradol is given prior to leaving the operative room for analgesic purposes. Patient will follow-up with me in the office in 2 weeks.
[2021-03-10 08:10] VITALS: TEMP 96.8
[2021-03-10] MEDS: fentaNYL (PF) 50 MCG/ML 2 ML AMP IV PRN ×2 (08:38→08:45)
[2021-03-10 09:02] VITALS: RESP 18
[2021-03-10 09:40] VITALS: BP 113/63; PULSE 64
== END 2021-03-10 09:51 | disposition home or self-care (01) ==
LOC: OR 06:29
PROVIDERS: ATTEND Obstetrics & Gynecology
DX: N81.4 Uterovaginal prolapse, unspecified (principal); N94.6 Dysmenorrhea, unspecified; N92.0 Excessive and frequent menstruation with regular cycle; K21.9 Gastro-esophageal reflux disease without esophagitis; M19.90 Unspecified osteoarthritis, unspecified site; Z96.651 Presence of right artificial knee joint; Z98.890 Other specified postprocedural states; Z82.49 Family history of ischemic heart disease and other diseases of the circulatory system; Z80.42 Family history of malignant neoplasm of prostate; Z80.3 Family history of malignant neoplasm of breast; Z83.3 Family history of diabetes mellitus; Z83.79 Family history of other diseases of the digestive system; Z88.5 Allergy status to narcotic agent
CPT/HCPCS: 81025; 58563; J2250; J1100; J2405; J2001; J3010; J1885; J2704; J1790

== ENCOUNTER → 2021-05-25 | Outpatient (CLI) | payer OTHER ==
--- NOTE | 2021-05-26 07:48 | MM ---
Reason for exam: follow-up at short interval from prior study. Last mammogram was performed 6 months ago. History: Family history of breast cancer in maternal grandmother at age 83. Benign core biopsy of the right breast. Took hormonal contraceptives for 6 years beginning at age 21. Physical Findings: A clinical breast exam by your physician is recommended on an annual basis and results should be correlated with mammographic findings. MG 3D Diag Mammo W/Cad RT CC and MLO view(s) were taken of the right breast. Prior study comparison: November 21, 2020, right breast MG 3d diag mammo w/cad RT. October 29, 2020, right breast MG work up mamm w CAD RT. The breast tissue is heterogeneously dense. This may lower the sensitivity of mammography. There is no discrete abnormality. No significant new findings when compared with previous films. Results were given to the patient verbally at the time of the exam. ASSESSMENT: Negative, BI-RAD 1 RECOMMENDATION: Return to routine screening mammogram schedule for both breasts. Back on schedule.
== END | disposition home or self-care (01) ==
LOC: RADMAMWWP 14:54
PROVIDERS: ATTEND Surgery
DX: R92.8 Other abnormal and inconclusive findings on diagnostic imaging of breast (principal); Z80.3 Family history of malignant neoplasm of breast
CPT/HCPCS: 77065; G0279; 77061

== ENCOUNTER → 2021-05-28 | Outpatient (CLI) | payer OTHER ==
[2021-05-28 15:49] VITALS: BP 129/83; PULSE 68; RESP 18; TEMP 98.2
--- NOTE | 2021-05-28 16:08 | P.PN ---
Subjective Progress Note Date: 05/28/21 Principal diagnosis: Fibrocystic breast changes Amada is a 51 year old white female seen in consultation for Dr. Cmumings regarding a mammographic abnormality in the right breast. She had a routine mammogram on . This was followed by diagnostic mammogram and an ultraso und on . No lesion of concern was noted on the ultrasound. The lesion persisted on the mammogram. 1.9 cm asymmetric density in the inferior right breast. A 3-D mammogram was performed on [id number] and reviewed with Dr. rodriguez. It was his opinion that the area of concern splayed out and was consistent with soft tissue and that the patient could have a repeat mammogram in 6 months rather than an attempt at stereo biopsy. The patient does not feel any lumps masses or nodules of concern in either breast. She is not complaining of any nipple discharge or skin changes. She has not had any trauma or infection in the breast. In the remote past she had an aspiration of the right breast which was nonmalignant. A repeat right breast mammogram was done on 05-25-21. This was benign BIRAD 1. Bilateral mammogram in October for routine screening. Caffeine: 2 cups/day nicotine: none chocolate: daily BCP: used them for about 5 years stopped at 28 Family history: Maternal grandmother: Breast cancer 1/2 sister (same father) uterine cancer Hormonal history: Menarche: 14 M2, breast fed: yes, age at first : 28 Periods irregular, patient is on provera an ultrasound for December 11 to check the lining of uterus; this was just for 7 days, she is not on any hormones at this time Surgical history: knee surgery right uterine ablation Medical History: none Social history: Nicotine: Negative Alcohol: occasional drugs: Marijuana once/month - Constitutional Constitutional: Denies chills, Denies fever - EENT Comment: headaches once a month Eyes: denies blurred vision, denies pain Ears: deny: decreased hearing, tinnitus Ears, nose, mouth and throat: Reports headache, Denies sore throat - Breasts Breasts: bilateral: as per HPI - Cardiovascular Cardiovascular: Denies chest pain, Denies shortness of breath - Respiratory Respiratory: Reports cough - Gastrointestinal Gastrointestinal: Denies abdominal pain, Denies diarrhea, Denies nausea, Denies vomiting - Genitourinary (Female) Genitourinary: Denies dysuria, Denies hematuria - Menstruation Menstruation: Reports menses variable - Musculoskeletal Musculoskeletal: Denies myalgias - Integumentary Integumentary: Denies pruritus, Denies rash - Neurological Neurological: Denies numbness, Denies weakness - Psychiatric Psychiatric: Reports anxiety, Denies depression - Endocrine Endocrine: Denies fatigue, Denies weight change - Hematologic/Lymphatic Comment: none - Allergic/Immunologic Allergic/Immunologic: Reports as per HPI Objective - Vital Signs Vital signs: Vital Signs Temp 98.2 F 05/28/21 15:46 Pulse 68 05/28/21 15:46 Resp 18 05/28/21 15:46 BP 129/83 05/28/21 15:46 Pulse Ox 98 05/28/21 15:46 Intake & Output 05/27/21 05/28/21 05/28/21 18:59 06:59 18:59 Weight 113.398 kg - Exam BMI 41.6 - Constitutional General appearance: Present: cooperative - EENT Eyes: Present: EOMI ENT: Present: hearing grossly normal - Neck Neck: Present: normal ROM - Respiratory Respiratory: bilateral: CTA - Cardiovascular Rhythm: regular Heart sounds: normal: S1, S2 - Integumentary Integumentary: Present: normal turgor - Musculoskeletal Musculoskeletal: Present: gait normal - Psychiatric Psychiatric: Present: A&O x's 3, appropriate affect, intact judgment & insight - Additional findings Additional findings: Breast Exam: BRA: 42DDD inspection: bilateral grade 3 ptosis inspection: Right breast: Multiple positional exam fibrocystic changes no dominant masses or nodules of concern Right axilla: No adenopathy of concern Left breast: Multi-positional exam fibrocystic changes no dominant masses or notches of concern Left axilla: No adenopathy of concern Assessment and Plan Assessment: Patient: Fibrocystic breast changes Plan: Repeat bilateral mammogram in October with physician exam at that time CC: Dr. Cummings
== END ==
LOC: WWCWWP 15:34
PROVIDERS: ATTEND Surgery
DX: N60.11 Diffuse cystic mastopathy of right breast (principal); N60.12 Diffuse cystic mastopathy of left breast; Z88.5 Allergy status to narcotic agent

== ENCOUNTER → 2021-07-21 | Outpatient (CLI) | payer BC, OTHER ==
--- NOTE | 2021-07-21 16:07 | MM ---
Reason for Exam: Clinical finding. Last screening mammogram was performed 9 month(s) ago. Indicated Problems: Palpable abnormality of the left side for 2 Week(s). Patient History: Menarche at age 15. First Full-Term at age 28. Hormonal Contraceptives for 6 years from age 21 until age 27. Benign Core Biopsy on the right side. Maternal grandmother had breast cancer, age 83. Last menstrual period: 07/13/2021 Risk Values: Miranda 5 year model risk: 1.2%. NCI Lifetime model risk: 10.6%. Prior Study Comparison: 10/07/2015 Bilateral Screening Mammogram, [facility]. 03/28/2017 Bilateral Screening Mammogram, [facility]. 10/29/2020 Right Diagnostic Mammogram, [facility]. 10/29/2020 Right Diagnostic Ultrasound, [facility]. 11/21/2020 Right Diagnostic Mammogram, [facility]. 05/25/2021 Right Diagnostic Mammogram, [facility]. Tissue Density: Left: The breast tissue is heterogeneously dense. This may lower the sensitivity of mammography. Findings: Analyzed By CAD. Mammogram Marker placed along the upper outer quadrant of the left breast. Additional spot compression views were performed. No discrete persisting underlying mass is identified but tissues are very dense here. No significant change from prior exams. Further ultrasound evaluation is recommended. Technique: Method: Targeted. Findings: The upper outer quadrant of the left breast was scanned. Targeted ultrasound was performed upper-outer quadrant left breast from 12:00 to 3:00. There is no solid or cystic lesion. Dense tissues are demonstrated. OVERALL ASSESSMENT: 2 - Benign Left. Overall Assessment: Benign, BI-RAD 2 Assessment: MG 3D diag mammo w/cad LT - Left: Incomplete: need additional imaging evaluation, BI-RAD 0. Management: Diagnostic Mammogram of both breasts in 3 months. 1. Patient due for her annual exam in 3 months. This can be performed in diagnostic clinic. 2. Patient should continue monthly self breast exams. Also, recommend clinical breast exam by your physician to assess the left upper outer quadrant palpable site. Results were given to the patient verbally at the time of exam. Electronically signed and approved by: Carlito Deng M.D. Radiologist
== END | disposition home or self-care (01) ==
LOC: RADMAMWWP 14:07
PROVIDERS: ATTEND Family Medicine
DX: R92.8 Other abnormal and inconclusive findings on diagnostic imaging of breast (principal); Z80.3 Family history of malignant neoplasm of breast
CPT/HCPCS: 77061; 77065

== ENCOUNTER → 2021-12-09 | Outpatient (CLI) | payer BC, OTHER ==
--- NOTE | 2021-12-09 07:33 | MM ---
Reason for Exam: Follow-up at short interval from prior study. Last mammogram was performed 1 year(s) and 2 month(s) ago. Patient History: Menarche at age 15. First Full-Term at age 28. Perimenopausal. Hormonal Contraceptives for 6 years from age 21 until age 27. Benign Core Biopsy on the right side. Maternal grandmother had breast cancer, age 83. Risk Values: Miranda 5 year model risk: 1.2%. NCI Lifetime model risk: 10.6%. Prior Study Comparison: 10/21/2020 Bilateral Screening Mammogram, [facility]. 10/29/2020 Right Diagnostic Mammogram, [facility]. 10/29/2020 Right Diagnostic Ultrasound, [facility]. 11/21/2020 Right Diagnostic Mammogram, [facility]. 05/25/2021 Right Diagnostic Mammogram, [facility]. 07/21/2021 Left MG 3D diag mammo w/cad LT, [facility]. 07/21/2021 Left US breast limited LT, [facility]. Tissue Density: The breast tissue is heterogeneously dense. This may lower the sensitivity of mammography. Findings: Analyzed By CAD. There are diffuse scattered and loosely grouped benign-appearing tiny round calcifications bilaterally redemonstrated. No suspicious new mass or distortion in either breast. Overall Assessment: Benign, BI-RAD 2 Management: Screening Mammogram of both breasts in 1 year. Back on annual schedule. Results were given to the patient verbally at the time of exam. Electronically signed and approved by: Elias Reyez M.D.
== END | disposition home or self-care (01) ==
LOC: RADMAMWWP 06:44
PROVIDERS: ATTEND Family Medicine
DX: R92.8 Other abnormal and inconclusive findings on diagnostic imaging of breast (principal); Z80.3 Family history of malignant neoplasm of breast
CPT/HCPCS: 77062; 77066

== ENCOUNTER → 2022-12-02 | Outpatient (CLI) | payer BC, OTHER | END | disposition home or self-care (01) | LOC: RADMAMWWP 17:03 | PROVIDERS: ATTEND Family Medicine | DX: Z12.31 Encounter for screening mammogram for malignant neoplasm of breast (principal) ==

== ENCOUNTER → 2022-12-13 | Outpatient (CLI) | payer BC, OTHER ==
--- NOTE | 2022-12-15 23:27 | MM ---
Reason for Exam: Screening (asymptomatic). Last screening mammogram was performed 12 month(s) ago. Patient History: Menarche at age 15. First Full-Term at age 28. Perimenopausal. Hormonal Contraceptives for 6 years from age 21 until age 27. Benign Core Biopsy on the right side. Maternal grandmother had breast cancer, age 83. Risk Values: Miranda 5 year model risk: 1.2%. NCI Lifetime model risk: 10.4%. Prior Study Comparison: 05/25/2021 Right Diagnostic Mammogram, [facility]. 07/21/2021 Left MG 3D diag mammo w/cad LT, [facility]. 12/09/2021 Bilateral MG 3D diag mammo w/cad VIK, [facility]. Tissue Density: The breast tissue is heterogeneously dense. This may lower the sensitivity of mammography. Findings: Analyzed By CAD. Unchanged areas of bilateral asymmetric densities. There is no suspicious group of microcalcifications or new suspicious mass in either breast. Overall Assessment: Benign, BI-RAD 2 Management: Screening Mammogram of both breasts in 1 year. . Patient should continue monthly self-breast exams. A clinical breast exam by your physician is recommended on an annual basis. This exam should not preclude additional follow-up of suspicious palpable abnormalities. Note on Miranda scores and lifetime risk: 1. A Miranda score greater than 3% is considered moderate risk. If this is the case, consider specialist referral to assess eligibility for a risk reducing agent. 2. If overall lifetime risk for the development of breast cancer is 20% or higher, the patient may qualify for future screening with alternating mammogram and breast MRI. Electronically signed and approved by: Carlito Deng M.D. Radiologist
== END | disposition home or self-care (01) ==
LOC: RADMAMWWP 16:46
PROVIDERS: ATTEND Family Medicine
DX: Z12.31 Encounter for screening mammogram for malignant neoplasm of breast (principal); Z80.3 Family history of malignant neoplasm of breast
CPT/HCPCS: 77063; 77067

== ENCOUNTER → 2023-03-15 | Outpatient (CLI) | payer BC ==
--- NOTE | 2023-03-19 15:52 | MR ---
EXAMINATION TYPE: MR shoulder RT wo con DATE OF EXAM: 03/15/2023 COMPARISON: Outside right shoulder x-ray March 09, 2023 HISTORY: Right shoulder pain, loss of range of motion- not able to reach behind or above head TECHNIQUE: Multiplanar, multisequence imaging of the right shoulder is performed without contrast. FINDINGS: Rotator Cuff: Some increased signal along the supraspinatus and infraspinatus tendons. Subscapularis tendon intact. Rotator cuff muscle bulk preserved. Acromioclavicular Joint: Moderate narrowing and mild capsular hypertrophy. No significant spurring. Glenohumeral Joint: No significant effusion. No significant spurring. Labrum: The labrum appears grossly intact given limitation of non-arthrogram study. Biceps Tendon: The long head of biceps is in normal location within bicipital groove. Bone marrow signal: Subchondral cystic change lateral humeral head. Additional 4 mm geode suspected i n the superior labrum coronal image 13. Other: No additional significant abnormality is appreciated. IMPRESSION: 1. Tendinosis of the supraspinatus and infraspinatus tendons. No distinct labral tear. Some degenerat gonzález changes are present as detailed above.
== END | disposition home or self-care (01) ==
LOC: RADMRIMAIN 20:15
PROVIDERS: ATTEND Orthopaedic Surgery
DX: M67.813 Other specified disorders of tendon, right shoulder (principal); M19.011 Primary osteoarthritis, right shoulder

== ENCOUNTER → 2023-12-13 | Outpatient (CLI) | payer BC ==
[2023-12-13 19:13] LABS: Basophils # (A) 0.03 X 10*3/uL (0.00-0.10); Basophils % (A) 0.4 %; Eosinophils # (A) 0.03 X 10*3/uL (0.04-0.35); Eosinophils % (A) 0.4 %; HCT 40.3 % (37.2-46.3); HGB 13.3 g/dL (12.0-15.0); Lymphocytes # (A) 1.99 X 10*3/uL (0.90-5.00); Lymphocytes % (A) 24.7 %; MCH 29.2 pg (27.0-32.0); MCV 88.6 FL (80.0-97.0); Mean Platelet Volume 12.6 FL (9.5-12.2); Monocytes # (A) 0.63 X 10*3/uL (0.20-1.00); Monocytes % (A) 7.8 %; NRBC Per 100 WBC 0 X 10*3/uL (0.00-0.01); Neutrophils # (A) 5.36 X 10*3/uL (1.80-7.70); Neutrophils % (A) 66.5 %; Platelet Count 150 X 10*3/uL (140-440); RBC 4.55 X 10*6/uL (4.10-5.20); RDW 13.1 % (11.5-14.5); WBC 8.06 X 10*3/uL (4.50-10.00)
[2023-12-13 19:18] LABS: ALT 14 U/L (8-44); AST 15 U/L (13-35); Albumin 4.1 g/dL (3.8-4.9); Albumin/Globulin Ratio 1.24 Ratio (1.60-3.17); Alkaline Phosphatase 67 U/L (41-126); BUN/Creat Ratio 15.17 Ratio (12.00-20.00); Blood Urea Nitrogen 9.1 mg/dL (9.0-27.0); Calcium 9.4 mg/dL (8.7-10.3); Carbon Dioxide 24.6 mmol/L (21.6-31.8); Chloride 104 mmol/L (96-109); Chol/HDL Ratio 2.48 Ratio; Globulin 3.3 g/dL (1.6-3.3); Glucose 81 mg/dL (70-110); LDL Cholesterol,Calculated 73.8 mg/dL (0.0-131.0); Sodium 139 mmol/L (135-145); T4, Free (Free Thyroxine) 1.34 ng/dL (0.80-1.80); Total Bilirubin 0.6 mg/dL (0.3-1.2); Total Protein 7.4 g/dL (6.2-8.2); VLDL Calculation 13.92 mg/dL (5.00-40.00)
== END | disposition home or self-care (01) ==
LOC: LABWHC1 14:13
PROVIDERS: ATTEND Family Medicine
DX: Z00.00 Encounter for general adult medical examination without abnormal findings (principal); E66.01 Morbid (severe) obesity due to excess calories; I10 Essential (primary) hypertension
CPT/HCPCS: 36415; 80053; 80061; 83036; 84439; 84443; 84481; 85025

== ENCOUNTER → 2024-02-10 | Outpatient (CLI) | payer BC ==
--- NOTE | 2024-02-13 07:53 | MM ---
Reason for Exam: Screening (asymptomatic). Last mammogram was performed 1 year(s) and 2 month(s) ago. Patient History: Menarche at age 15. First Full-Term at age 28. Perimenopausal. Hormonal Contraceptives for 6 years from age 21 until age 27. Benign Core Biopsy on the right side. Maternal grandmother had breast cancer, age 83. Risk Values: Miranda 5 year model risk: 1.3%. NCI Lifetime model risk: 10.1%. Prior Study Comparison: 07/21/2021 Left MG 3D diag mammo w/cad LT, [facility]. 12/09/2021 Bilateral MG 3D diag mammo w/cad VIK, [facility]. 12/13/2022 Bilateral MG 3D screening mammo w/cad, [facility]. Tissue Density: The breasts are heterogeneously dense, which may obscure small masses. Findings: Analyzed By CAD. Right breast: There is no suspicious group of microcalcifications or new suspicious mass. Left breast: There is no suspicious group of microcalcifications or new suspicious mass. Overall Assessment: Negative, BI-RAD 1 Management: Screening Mammogram of both breasts in [address] [facility] will attempt to contact patient to return for supplemental views and ultrasound if indicated. Patient should continue monthly self-breast exams. A clinical breast exam by your physician is recommended on an annual basis. This exam should not preclude additional follow-up of suspicious palpable abnormalities. Note on Miranda scores and lifetime risk: 1. A Miranda score greater than 3% is considered moderate risk. If this is the case, consider specialist referral to assess eligibility for a risk reducing agent. 2. If overall lifetime risk for the development of breast cancer is 20% or higher, the patient may qualify for future screening with alternating mammogram and breast MRI. [facility], , 02/13/2024 7:50 AM. Electronically signed and approved by: Renan Maria DO
== END | disposition home or self-care (01) ==
LOC: RADMAMWWP 10:02
PROVIDERS: ATTEND Family Medicine
DX: Z12.31 Encounter for screening mammogram for malignant neoplasm of breast (principal); Z80.3 Family history of malignant neoplasm of breast; R92.333 Mammographic heterogeneous density, bilateral breasts
CPT/HCPCS: 77063; 77067